=== PATIENT | female | born 1950 | race Caucasian/White ===

== ENCOUNTER 2024-10-18 15:35 | Inpatient (IN) | payer MEDICARE, OTHER ==
[~2024-10-18] VITALS: Ht 152.4 cm; Wt 36.3 kg
[2024-10-18 16:08] VITALS: BP 162/81; TEMP 97.9
[2024-10-18 16:50] VITALS: BP 162/81; TEMP 97.9
[2024-10-19] MEDS ORDERED: AMLO-212 PO (14:48)
[2024-10-19] MEDS ORDERED: ALBU2.5V38 IH (14:48)
[2024-10-19] MEDS ORDERED: ACET325T53 PO (14:48)
[2024-10-19] MEDS ORDERED: CHOL200013 PO (14:48)
[2024-10-19] MEDS ORDERED: ASPI81TA31 PO (14:48)
[2024-10-19] MEDS ORDERED: BISA-79 PO (14:48)
[2024-10-19] MEDS ORDERED: ZOLP5TAB8 PO (15:29)
[2024-10-19] MEDS ORDERED: PROC-11 PO (15:29)
[2024-10-19] MEDS ORDERED: LOPE2TAB25 PO (15:29)
[2024-10-19] MEDS ORDERED: FLUT1BLS6 IH (15:29)
[2024-10-19] MEDS ORDERED: RIBO400T PO (15:29)
[2024-10-19] MEDS ORDERED: ZINC113P3 TP (15:29)
[2024-10-19] MEDS ORDERED: HONE44PA TP (15:29)
[2024-10-19] MEDS ORDERED: SIME80TA15 PO (15:29)
[2024-10-19] MEDS ORDERED: ENOX40DI SUBCUT (15:29)
[2024-10-19] MEDS ORDERED: OXYC-128 PO (15:29)
[2024-10-19] MEDS ORDERED: PANT40TA2 PO (15:29)
[2024-10-19] MEDS ORDERED: SUMA100T16 PO (15:29)
[2024-10-19] MEDS ORDERED: MAGN30OR PO (15:29)
[2024-10-19] MEDS ORDERED: ESTR-3 PO (15:29)
[2024-10-19] MEDS ORDERED: DIAZ5TAB4 PO (15:29)
[2024-10-19] MEDS ORDERED: LEVO75TA7 PO (15:29)
[2024-10-19] MEDS ORDERED: MAGN400O6 PO (15:29)
[2024-10-19] MEDS ORDERED: ONDA4VIA52 IV (15:29)
[2024-10-19] MEDS ORDERED: PRED5SOL PO (15:29)
[2024-10-19] MEDS ORDERED: METO25TA6 PO (15:29)
[2024-10-19] MEDS ORDERED: DOCU-141 PO (15:29)
[2024-10-19] MEDS ORDERED: PRED-170 (15:29)
[2024-10-19] MEDS ORDERED: FENT1PAT9 TD (15:29)
[2024-10-19] MEDS ORDERED: SUMA100T PO (16:21)
[2024-10-19] MEDS ORDERED: PETR113P TP (16:23)
[2024-10-19] MEDS ORDERED: FENT1PAT9 TP (16:28)
[2024-10-19 17:11] VITALS: BP 145/70; TEMP 98; O2SAT 97
[2024-10-19] MEDS ORDERED: OXYCODONE/APAP 5-325 MG TABLET PO PRN (17:45)
[2024-10-19] MEDS ORDERED: DIAZEPAM 5 MG TABLET PO PRN (17:45)
[2024-10-19] MEDS ORDERED: MAGNESIUM HYDROXIDE 30 ML LIQUID UDC PO PRN (17:45)
[2024-10-19] MEDS ORDERED: BISACODYL 5 MG TABLET.DR PO PRN (17:45)
[2024-10-19] MEDS ORDERED: ACETAMINOPHEN 325 MG TABLET-SA PATIENTS-PAIN ONLY PO PRN (17:45)
[2024-10-19] MEDS ORDERED: ONDANSETRON 4 MG/2 ML VIAL IV PRN (17:45)
[2024-10-19] MEDS ORDERED: NALOXONE HCL 0.4 MG/ML AMPUL IV PRN (17:45)
[2024-10-19 19:36] LABS: *BILIRUBIN,URIN NEGATIVE (NEGATIVE); *CLARITY,URINE CLEAR (CLEAR); *COLOR,URINE YELLOW (YELLOW); *KETONES,URINE NEGATIVE (NEGATIVE); *PROTEIN,URINE NEGATIVE (NEGATIVE); *UROBILINOGEN,URINE 0.2 E.U./dl (NORMAL); LEUKOCYTE ESTERASE ,URINE TRACE (NEGATIVE); NITRITE, URINE NEGATIVE (NEGATIVE); UGLUCOSE TRACE (NEGATIVE)
[2024-10-19 19:38] LABS: *BLOOD, URINE TRACE (NEGATIVE)
[2024-10-19 20:00] LABS: BACTERIA,URINE FEW /HPF (NONE SEEN); RBC,URINE 0-3 /HPF (0-3); SQUAMOUS EPITHELIAL CELL,UR MODERATE /HPF (NONE SEEN)
[2024-10-19] MEDS ORDERED: MAG HYDROX/AL HYDROX/SIMETH 30 ML LIQUID UDC PO PRN (20:15)
[2024-10-19 20:48] VITALS: BP 140/75; TEMP 98.2; O2SAT 96
[2024-10-19] MEDS ORDERED: HYDROMORPHONE HCL 2 MG TABLET PO PRN (21:45)
[2024-10-20 06:30] VITALS: BP 141/62; TEMP 97.4; O2SAT 98
[2024-10-20 07:55] VITALS: TEMP 98.2
[2024-10-20] MEDS: PANTOPRAZOLE SODIUM 40 MG TABLET.DR PO SCH (08:42)
[2024-10-20] MEDS: SIMETHICONE 80 MG TAB.CHEW PO SCH (08:42)
[2024-10-20] MEDS: AMLODIPINE 5 MG TABLET PO SCH (08:43)
[2024-10-20] MEDS: ASPIRIN 81 MG TAB.CHEW PO SCH (08:43)
[2024-10-20] MEDS: LEVOTHYROXINE SODIUM 75 MCG TABLET PO SCH (08:43)
[2024-10-20] MEDS: METOPROLOL TARTRATE 25 MG TABLET PO SCH (08:43)
[2024-10-20] MEDS: CHOLECALCIFEROL 1,000 UNIT TABLET PO SCH (08:43)
[2024-10-20] MEDS: ENOXAPARIN SODIUM 40 MG/0.4 ML DISP.SYRIN SQ SCH (08:44)
[2024-10-20 08:45] LABS: BASOPHILS % (AUTO) 0.4 % (0.0-2.0); EOSINOPHILS # (AUTO) 0.1 K/uL (0.0-0.7); EOSINOPHILS % (AUTO) 1.2 % (0.0-7.0); HEMOGLOBIN 11.7 g/dL (10.9-14.3); LYMPHOCYTES % (AUTO) 10.5 % (20.5-51.5); MEAN CORPUSCULAR HEMOGLOBIN 32.3 uug (24.7-32.8); MEAN CORPUSCULAR HGB CONC 34 g/dL (32.3-35.6); MEAN CORPUSCULAR VOLUME 94.2 fL (75.5-95.3); MONOCYTES # (AUTO) 0.6 K/uL (0.1-1.30); MONOCYTES % (AUTO) 6.3 % (0.0-11.0); NEUTROPHILS % (AUTO) 81.6 % (38.5-71.5); PLATELET COUNT (AUTO) 380 K/uL (179-408); RED BLOOD CELL COUNT(AUTO) 3.62 MIL/uL (3.63-4.92); RED CELL DISTRIBUTION WIDTH 13.9 % (12.3-17.7); WHITE BLOOD COUNT (AUTO) 9.7 K/uL (3.8-11.8)
[2024-10-20 08:58] LABS: CALCIUM 9.4 mg/dL (8.5-10.1); CARBON DIOXIDE 32 mmol/L (21-32); CHLORIDE 102 mmol/L (98-107); CREATININE 0.9 mg/dL (0.6-1.3); GLUCOSE 116 mg/dL (74-106); PHOSPHOROUS 2.6 mg/dL (2.5-4.9); POTASSIUM 3.7 mmol/L (3.5-5.1); SODIUM SERUM 139 mmol/L (136-145); UREA NITROGEN, BLOOD 23 mg/dL (7-18)
[2024-10-20 09:00] LABS: DIFFERENTIAL COMMENT 1
[2024-10-20] MEDS ORDERED: [UNRECOGNIZED DRUG - OTHER] PO SCH (09:00)
[2024-10-20] MEDS ORDERED: predniSONE 5 MG/5 ML LIQ UDC PO SCH (09:00)
[2024-10-20] MEDS ORDERED: Medication Not On Formulary EA (Riboflavin 400 MG) PO SCH (09:00)
[2024-10-20] MEDS: PROCHLORPERAZINE MALEATE 5 MG TABLET PO SCH (10:10)
[2024-10-20] MEDS: ONDANSETRON ODT 4 MG TAB.RAPDIS SL PRN (10:17)
[2024-10-20] MEDS: predniSONE 5 MG TABLET PO SCH (10:17)
[2024-10-20] MEDS: RIBOFLAVIN 400 MG PO SCH (11:21)
[2024-10-20] MEDS: PREMPRO PO SCH (11:21)
[2024-10-20] MEDS: MEDIHONEY= THERAHONEY 1.5 OZ TUBE TOP SCH (12:03)
[2024-10-20] MEDS ORDERED: ONDANSETRON 4 MG/2 ML VIAL IM ONE (13:00)
[2024-10-20] MEDS: ONDANSETRON 4 MG/2 ML VIAL IM ONE (13:30)
[2024-10-20 16:15] VITALS: TEMP 97.4; O2SAT 96
[2024-10-20] MEDS: ENSURE ENLIVE (VAN) 240 ML LIQUID PO SCH (16:15)
[2024-10-20] MEDS: DOCUSATE SODIUM 100 MG CAPSULE PO PRN (16:18)
[2024-10-20 19:53] VITALS: BP 121/66; TEMP 99.9; O2SAT 97
[2024-10-20] MEDS: ACETAMINOPHEN 325 MG TABLET PO PRN (20:09)
[2024-10-21 02:35] VITALS: O2SAT 96
[2024-10-21 05:40] VITALS: BP 150/77; TEMP 98.3; O2SAT 98
[2024-10-21 07:41] LABS: BASOPHILS % (AUTO) 0.8 % (0.0-2.0); EOSINOPHILS % (AUTO) 0.9 % (0.0-7.0); HEMATOCRIT 29.9 % (31.2-41.9); HEMOGLOBIN 10.3 g/dL (10.9-14.3); LYMPHOCYTES # (AUTO) 1.2 K/uL (0.8-4.8); LYMPHOCYTES % (AUTO) 23.4 % (20.5-51.5); MEAN CORPUSCULAR HEMOGLOBIN 32.1 uug (24.7-32.8); MEAN CORPUSCULAR HGB CONC 34 g/dL (32.3-35.6); MEAN CORPUSCULAR VOLUME 93.2 fL (75.5-95.3); MONOCYTES # (AUTO) 0.9 K/uL (0.1-1.30); MONOCYTES % (AUTO) 18.7 % (0.0-11.0); NEUTROPHILS # (AUTO) 2.8 K/uL (1.8-8.9); NEUTROPHILS % (AUTO) 56.2 % (38.5-71.5); PLATELET COUNT (AUTO) 298 K/uL (179-408); RED BLOOD CELL COUNT(AUTO) 3.21 MIL/uL (3.63-4.92); RED CELL DISTRIBUTION WIDTH 13.6 % (12.3-17.7)
[2024-10-21 07:52] LABS: DIFFERENTIAL COMMENT 1
[2024-10-21 07:54] LABS: CALCIUM 8.8 mg/dL (8.5-10.1); CARBON DIOXIDE 33 mmol/L (21-32); CHLORIDE 100 mmol/L (98-107); GLUCOSE 91 mg/dL (74-106); POTASSIUM 3.8 mmol/L (3.5-5.1); SODIUM SERUM 137 mmol/L (136-145); UREA NITROGEN, BLOOD 30 mg/dL (7-18)
[2024-10-21 08:00] VITALS: BP 155/80; TEMP 98.5; O2SAT 100
[2024-10-21] MEDS: FENTANYL 100MCG/HR PATCH TD SCH (08:26)
[2024-10-21 12:19] LABS: LYMPHOCYTES % (MANUAL) 23 % (20-40); MONOCYTES % (MANUAL) 19 % (2-10); NEUTROPHILS % (MANUAL) 56 % (42-75)
[2024-10-21 12:20] LABS: EOSINOPHILS % (MANUAL) 2 % (0-8); PLATELET ESTIMATE ADEQUATE
[2024-10-21] MEDS: SUMATRIPTAN SUCCINATE 50 MG TABLET PO PRN (14:30)
[2024-10-21] MEDS: HYDROMORPHONE HCL 2 MG TABLET PO PRN (16:00)
[2024-10-21 16:02] VITALS: BP 135/73; TEMP 98; O2SAT 96
[2024-10-21 16:25] VITALS: O2SAT 96
[2024-10-21] MEDS: IV NS 1000 ML 1,000 ML IV ONE (16:58)
[2024-10-21 20:56] VITALS: BP 113/65; TEMP 98; O2SAT 98
[2024-10-22 06:19] VITALS: BP 112/67; TEMP 98.2; O2SAT 98
[2024-10-22 08:00] VITALS: BP 147/64; TEMP 97.5; O2SAT 98
[2024-10-22] MEDS: TRELEGY ELIPTA IH SCH (09:00)
[2024-10-22 14:20] VITALS: O2SAT 98
[2024-10-22 15:48] VITALS: BP 145/69; TEMP 97.9; O2SAT 99
[2024-10-22 21:08] VITALS: BP 131/65; TEMP 97.9; O2SAT 97
[2024-10-22 21:09] VITALS: BP 131/65; TEMP 97.9; O2SAT 97
[2024-10-23] VITALS (7 sets, daily range): BP systolic 116–152; BP diastolic 49–66; TEMP 97.6–98; O2SAT 95–99
[2024-10-23 07:28] LABS: BASOPHILS % (AUTO) 0.6 % (0.0-2.0); EOSINOPHILS # (AUTO) 0.1 K/uL (0.0-0.7); EOSINOPHILS % (AUTO) 0.8 % (0.0-7.0); HEMATOCRIT 25.2 % (31.2-41.9); HEMOGLOBIN 8.7 g/dL (10.9-14.3); LYMPHOCYTES # (AUTO) 1.5 K/uL (0.8-4.8); LYMPHOCYTES % (AUTO) 23.1 % (20.5-51.5); MEAN CORPUSCULAR HEMOGLOBIN 32.1 uug (24.7-32.8); MEAN CORPUSCULAR HGB CONC 34 g/dL (32.3-35.6); MEAN CORPUSCULAR VOLUME 93.4 fL (75.5-95.3); MONOCYTES # (AUTO) 0.8 K/uL (0.1-1.30); MONOCYTES % (AUTO) 12.1 % (0.0-11.0); NEUTROPHILS # (AUTO) 4.1 K/uL (1.8-8.9); NEUTROPHILS % (AUTO) 63.4 % (38.5-71.5); PLATELET COUNT (AUTO) 318 K/uL (179-408); RED CELL DISTRIBUTION WIDTH 13.1 % (12.3-17.7); WHITE BLOOD COUNT (AUTO) 6.5 K/uL (3.8-11.8)
[2024-10-23 07:41] LABS: CALCIUM 8.4 mg/dL (8.5-10.1); CARBON DIOXIDE 30 mmol/L (21-32); CHLORIDE 101 mmol/L (98-107); CREATININE 0.7 mg/dL (0.6-1.3); GLUCOSE 90 mg/dL (74-106); MAGNESIUM 1.5 mg/dL (1.8-2.4); PHOSPHOROUS 2.2 mg/dL (2.5-4.9); SODIUM SERUM 136 mmol/L (136-145); UREA NITROGEN, BLOOD 21 mg/dL (7-18)
[2024-10-23 07:42] LABS: DIFFERENTIAL COMMENT 1
[2024-10-23] MEDS: MAGNESIUM OXIDE 400 MG TABLET PO ONE (09:13)
[2024-10-23 13:20] LABS: *OCCULT BLOOD STOOL NEGATIVE (NEGATIVE)
[2024-10-23] MEDS: HYDROMORPHONE HCL 2 MG TABLET PO PRN (15:21)
[2024-10-23] MEDS: NEUTRA PHOS PACKET PO ONE (16:55)
[2024-10-23] MEDS: ALBUTEROL SULFATE 2.5 MG/3 ML NEBU IH PRN (17:15)
[2024-10-24 06:35] VITALS: BP 120/52; TEMP 97.3; O2SAT 97
[2024-10-24 07:53] VITALS: TEMP 97.6
[2024-10-24] MEDS: FENTANYL 100MCG/HR PATCH TD SCH (08:46)
[2024-10-24 14:57] VITALS: O2SAT 97
[2024-10-24 16:00] VITALS: TEMP 98
[2024-10-24 19:33] VITALS: BP 111/53; TEMP 98; O2SAT 99
[2024-10-25 05:00] VITALS: BP 117/55; TEMP 98.2; O2SAT 99
[2024-10-25 05:11] VITALS: O2SAT 96
[2024-10-25 08:00] VITALS: BP 128/58; TEMP 97.8; O2SAT 100
[2024-10-25 16:00] VITALS: BP 106/46; TEMP 97.6; O2SAT 100
[2024-10-25 16:59] VITALS: O2SAT 96
[2024-10-25 21:20] VITALS: BP 117/53; TEMP 98.5; O2SAT 98
[2024-10-26 07:16] VITALS: BP 100/46; TEMP 97.9; O2SAT 100
[2024-10-26 07:35] LABS: BASOPHILS % (AUTO) 0.8 % (0.0-2.0); EOSINOPHILS # (AUTO) 0.1 K/uL (0.0-0.7); EOSINOPHILS % (AUTO) 1.7 % (0.0-7.0); HEMATOCRIT 23.4 % (31.2-41.9); HEMOGLOBIN 8.1 g/dL (10.9-14.3); LYMPHOCYTES # (AUTO) 1.6 K/uL (0.8-4.8); LYMPHOCYTES % (AUTO) 26.7 % (20.5-51.5); MEAN CORPUSCULAR HGB CONC 34 g/dL (32.3-35.6); MEAN CORPUSCULAR VOLUME 92.8 fL (75.5-95.3); MONOCYTES # (AUTO) 0.8 K/uL (0.1-1.30); MONOCYTES % (AUTO) 12.6 % (0.0-11.0); NEUTROPHILS # (AUTO) 3.5 K/uL (1.8-8.9); NEUTROPHILS % (AUTO) 58.2 % (38.5-71.5); PLATELET COUNT (AUTO) 362 K/uL (179-408); RED BLOOD CELL COUNT(AUTO) 2.52 MIL/uL (3.63-4.92); WHITE BLOOD COUNT (AUTO) 6.1 K/uL (3.8-11.8)
[2024-10-26 07:45] LABS: DIFFERENTIAL COMMENT 1
[2024-10-26 07:49] VITALS: BP 134/68; TEMP 97.4
[2024-10-26 08:04] LABS: THYROID STIMULATING HORMONE 24.825 mIU/mL (0.358-3.740)
[2024-10-26 08:11] LABS: IRON, SERUM 58 ug/dL (50-175)
[2024-10-26 08:15] LABS: ALANINE AMINOTRANSFERASE 29 U/L (14-59); ALKALINE PHOSPHATASE 90 U/L (50-136); ASPARTATE AMINOTRANSFERASE 20 U/L (15-37); BILIRUBIN,TOTAL 0.5 mg/dL (0.2-1.0); CALCIUM 8.7 mg/dL (8.5-10.1); CARBON DIOXIDE 33 mmol/L (21-32); CHLORIDE 101 mmol/L (98-107); CREATININE 0.7 mg/dL (0.6-1.3); GLUCOSE 86 mg/dL (74-106); MAGNESIUM 1.7 mg/dL (1.8-2.4); PHOSPHOROUS 2.5 mg/dL (2.5-4.9); POTASSIUM 3.8 mmol/L (3.5-5.1); SODIUM SERUM 137 mmol/L (136-145); TOTAL PROTEIN, SERUM 5.3 g/dL (6.4-8.2); UREA NITROGEN, BLOOD 17 mg/dL (7-18)
[2024-10-26] MEDS: AMLODIPINE 5 MG TABLET PO SCH (08:52)
[2024-10-26] MEDS: ASPIRIN EC 81 MG TABLET.DR PO SCH (08:52)
[2024-10-26] MEDS: DOCUSATE SODIUM 100 MG CAPSULE PO SCH (08:53)
[2024-10-26] MEDS: MAGNESIUM OXIDE 400 MG TABLET PO ONE (12:31)
[2024-10-26] MEDS: HYDROMORPHONE HCL 2 MG TABLET PO PRN (15:31)
[2024-10-26 15:48] VITALS: BP 129/64; TEMP 97.3
[2024-10-26 16:40] VITALS: O2SAT 97
[2024-10-26 21:47] VITALS: BP 118/49; TEMP 98; O2SAT 99
[2024-10-26 22:01] VITALS: O2SAT 98
[2024-10-27] MEDS: LEVOTHYROXINE SODIUM 100 MCG TABLET PO SCH (06:26)
[2024-10-27 07:16] VITALS: BP 164/76; TEMP 98.1; O2SAT 99
[2024-10-27 08:00] VITALS: BP 125/53; TEMP 97.6; O2SAT 99
[2024-10-27] MEDS: PROTEIN SUPPLEMENT (PROSTAT) 30 ML LIQUID PO SCH (08:58)
[2024-10-27 10:00] VITALS: O2SAT 98
[2024-10-27 16:00] VITALS: BP 127/52; TEMP 98.6; O2SAT 100
[2024-10-27 19:19] VITALS: BP 136/57; TEMP 98.4; O2SAT 100
[2024-10-28 05:40] VITALS: BP 169/91; TEMP 98.3; O2SAT 100
[2024-10-28 07:56] VITALS: BP 132/56; TEMP 98; O2SAT 100
[2024-10-28 15:25] VITALS: BP 123/61; TEMP 98; O2SAT 100
[2024-10-28 16:08] VITALS: O2SAT 99
[2024-10-28 19:32] VITALS: BP 130/65; TEMP 98.5; O2SAT 98
[2024-10-29 05:26] VITALS: BP 155/54; TEMP 98.4; O2SAT 99
[2024-10-29 08:00] VITALS: BP 161/67; TEMP 97.7; O2SAT 100
[2024-10-29 15:45] VITALS: O2SAT 98
[2024-10-29 16:15] VITALS: BP 113/61; TEMP 98.7; O2SAT 98
[2024-10-29 16:55] VITALS: BP 113/61; TEMP 98.7; O2SAT 95
[2024-10-29 21:28] VITALS: BP 122/50; TEMP 98.1; O2SAT 97
[2024-10-30 06:45] VITALS: BP 125/58; TEMP 98.2; O2SAT 97
[2024-10-30 08:00] VITALS: BP 145/66; TEMP 97.8; O2SAT 96
[2024-10-30 08:30] VITALS: BP 145/66; TEMP 97.8; O2SAT 96
[2024-10-30 08:54] VITALS: BP 145/66
[2024-10-30] MEDS: [UNRECOGNIZED DRUG - OTHER] TOP SCH (09:12)
[2024-10-30] MEDS: FENTANYL 100 MCG/HR TOP SCH (09:12)
== END 2024-10-30 14:25 | disposition home health service (06) | DRG 463 ==
PROVIDERS: ADMIT Physical Medicine & Rehabilitation Pain Medicine; ATTEND Physical Medicine & Rehabilitation Pain Medicine
PROC: 0JB70ZZ Excision of Back Subcutaneous Tissue and Fascia, Open Approach (ICD-10-PCS; principal; 2024-10-25)
DX: Z47.1 Aftercare following joint replacement surgery (principal); E43 Unspecified severe protein-calorie malnutrition; L89.153 Pressure ulcer of sacral region, stage 3; R64 Cachexia; Z68.1 Body mass index [BMI] 19.9 or less, adult; Z96.642 Presence of left artificial hip joint; I10 Essential (primary) hypertension; Z88.0 Allergy status to penicillin; M06.9 Rheumatoid arthritis, unspecified; Z91.81 History of falling; E03.9 Hypothyroidism, unspecified; E83.39 Other disorders of phosphorus metabolism; E83.42 Hypomagnesemia; R62.7 Adult failure to thrive; G89.29 Other chronic pain; R29.6 Repeated falls; D64.9 Anemia, unspecified
CPT/HCPCS: 36415; 73501; 83550; 83735; 84100; 84443; 85025; 85610; 94664; 94760; 97535-GO-CO; A6209; J1650; J7040; J7510; J7512; J8499; Q0162

== ENCOUNTER 2024-11-10 09:51 | Inpatient (IN) | payer MEDICARE, OTHER ==
[~2024-11-10] VITALS: Ht 160 cm; Wt 42.2 kg
[~2024-11-10 09:51] MED LIST: ACET325T53 PO; ALBU2.5V38 IH; AMLO-212 PO; ASPI81TA31 PO; BISA-79 PO; CHOL200013 PO; DIAZ5TAB4 PO; DOCU-141 PO; ENOX40DI SUBCUT; ESTR-3 PO; FENT1PAT9 TP; FLUT1BLS6 IH; HONE44PA TP; LEVO75TA7 PO; LOPE2TAB25 PO; MAGN30OR PO; MAGN400O6 PO; METO25TA6 PO; ONDA4VIA52 IV; OXYC-128 PO; PANT40TA2 PO; PETR113P TP; PRED5SOL PO; PROC-11 PO; RIBO400T PO; SIME80TA15 PO; SUMA100T PO; ZOLP5TAB8 PO
[2024-11-10 10:33] VITALS: BP 157/80; TEMP 97.7
[2024-11-10 10:55] VITALS: BP 157/80; TEMP 97.7
[2024-11-10 18:08] VITALS: BP 118/56; TEMP 98.1; O2SAT 93
[2024-11-10 18:11] VITALS: TEMP 98.1
[2024-11-10] MEDS ORDERED: ONDANSETRON 4 MG/2 ML VIAL IV PRN (18:30)
[2024-11-10] MEDS ORDERED: ALBUTEROL SULFATE 2.5 MG/3 ML NEBU IH PRN (18:30)
[2024-11-10] MEDS ORDERED: NALOXONE HCL 0.4 MG/ML AMPUL IV PRN (18:30)
[2024-11-10] MEDS ORDERED: DIAZEPAM 5 MG TABLET PO PRN (18:30)
[2024-11-10] MEDS ORDERED: LOPERAMIDE HCL 2 MG CAPSULE PO PRN (18:30)
[2024-11-10] MEDS ORDERED: SUMATRIPTAN SUCCINATE 50 MG TABLET PO PRN (18:30)
[2024-11-10] MEDS ORDERED: MAG HYDROX/AL HYDROX/SIMETH 30 ML LIQUID UDC PO PRN (18:30)
[2024-11-10] MEDS ORDERED: ACETAMINOPHEN 325 MG TABLET PO PRN (18:30)
[2024-11-10] MEDS ORDERED: ALBUTEROL SULFATE 2.5 MG/3 ML NEBU NEB PRN (18:45)
[2024-11-10 21:19] VITALS: BP 121/54; TEMP 98.5; O2SAT 93
[2024-11-10] MEDS ORDERED: REMEDY ESSENTIAL ZINC PASTE 113 GM TOP PRN (23:30)
[2024-11-11] MEDS: OXYCODONE/APAP 5-325 MG TABLET PO PRN (01:01)
[2024-11-11] MEDS: PANTOPRAZOLE SODIUM 40 MG TABLET.DR PO SCH (06:19)
[2024-11-11] MEDS: LEVOTHYROXINE SODIUM 75 MCG TABLET PO SCH (06:19)
[2024-11-11 06:48] VITALS: BP 142/60; TEMP 98.3; O2SAT 94
[2024-11-11 07:35] VITALS: BP 155/67; TEMP 98.2; O2SAT 95
[2024-11-11 08:09] LABS: BASOPHILS % (AUTO) 0.5 % (0.0-2.0); EOSINOPHILS # (AUTO) 0.2 K/uL (0.0-0.7); EOSINOPHILS % (AUTO) 2.5 % (0.0-7.0); HEMATOCRIT 26.6 % (31.2-41.9); HEMOGLOBIN 9.2 g/dL (10.9-14.3); LYMPHOCYTES # (AUTO) 1.3 K/uL (0.8-4.8); LYMPHOCYTES % (AUTO) 17.8 % (20.5-51.5); MEAN CORPUSCULAR HEMOGLOBIN 32.9 uug (24.7-32.8); MEAN CORPUSCULAR HGB CONC 34 g/dL (32.3-35.6); MEAN CORPUSCULAR VOLUME 95.6 fL (75.5-95.3); MONOCYTES # (AUTO) 0.6 K/uL (0.1-1.30); MONOCYTES % (AUTO) 8.8 % (0.0-11.0); NEUTROPHILS # (AUTO) 5.1 K/uL (1.8-8.9); NEUTROPHILS % (AUTO) 70.4 % (38.5-71.5); PLATELET COUNT (AUTO) 245 K/uL (179-408); RED BLOOD CELL COUNT(AUTO) 2.79 MIL/uL (3.63-4.92); RED CELL DISTRIBUTION WIDTH 14.3 % (12.3-17.7); WHITE BLOOD COUNT (AUTO) 7.2 K/uL (3.8-11.8)
[2024-11-11] MEDS: ENOXAPARIN SODIUM 40 MG/0.4 ML DISP.SYRIN SQ SCH (08:15)
[2024-11-11] MEDS: AMLODIPINE 5 MG TABLET PO SCH (08:15)
[2024-11-11] MEDS: CHOLECALCIFEROL 1,000 UNIT TABLET PO SCH (08:15)
[2024-11-11] MEDS: predniSONE 5 MG TABLET PO SCH (08:16)
[2024-11-11] MEDS: ASPIRIN 81 MG TAB.CHEW PO SCH (08:16)
[2024-11-11] MEDS: SIMETHICONE 80 MG TAB.CHEW PO SCH (08:16)
[2024-11-11] MEDS: PROCHLORPERAZINE MALEATE 5 MG TABLET PO SCH (08:17)
[2024-11-11 08:29] LABS: DIFFERENTIAL COMMENT 1
[2024-11-11 08:48] LABS: ALANINE AMINOTRANSFERASE 16 U/L (14-59); ALBUMIN 2.1 g/dL (3.4-5.0); ALKALINE PHOSPHATASE 76 U/L (50-136); ASPARTATE AMINOTRANSFERASE 19 U/L (15-37); BILIRUBIN,DIRECT 0.1 mg/dL (0.0-0.2); BILIRUBIN,TOTAL 0.4 mg/dL (0.2-1.0); CALCIUM 8.5 mg/dL (8.5-10.1); CARBON DIOXIDE 27 mmol/L (21-32); CHLORIDE 103 mmol/L (98-107); CREATININE 0.7 mg/dL (0.6-1.3); GLUCOSE 87 mg/dL (74-106); MAGNESIUM 1.9 mg/dL (1.8-2.4); PHOSPHOROUS 1.6 mg/dL (2.5-4.9); POTASSIUM 3.7 mmol/L (3.5-5.1); SODIUM SERUM 138 mmol/L (136-145); TOTAL PROTEIN, SERUM 5.7 g/dL (6.4-8.2); UREA NITROGEN, BLOOD 17 mg/dL (7-18)
[2024-11-11] MEDS ORDERED: predniSONE 5 MG/5 ML LIQ UDC PO SCH (09:00)
[2024-11-11] MEDS ORDERED: METOPROLOL TARTRATE 25 MG TABLET PO SCH (09:00)
[2024-11-11] MEDS ORDERED: Medication Not On Formulary EA (Riboflavin 400 MG) PO SCH (09:00)
[2024-11-11] MEDS ORDERED: PRED-170 PO (09:17)
[2024-11-11] MEDS ORDERED: TRAM50TA2 PO (09:19)
[2024-11-11] MEDS ORDERED: GABA-532 PO (09:19)
[2024-11-11] MEDS ORDERED: ASPI-1420 PO (09:20)
[2024-11-11] MEDS ORDERED: VITA-85A PO (09:23)
[2024-11-11] MEDS ORDERED: ASCO500C18 PO (09:26)
[2024-11-11 11:18] LABS: THYROID STIMULATING HORMONE 5.883 mIU/mL (0.358-3.740)
[2024-11-11] MEDS: MEDIHONEY= THERAHONEY 1.5 OZ TUBE TOP SCH (12:21)
[2024-11-11] MEDS: PREMPRO PO SCH (12:22)
[2024-11-11 15:12] VITALS: BP 112/56; TEMP 98.8; O2SAT 95
[2024-11-11] MEDS: NEUTRA PHOS PACKET PO ONE (16:15)
[2024-11-11] MEDS: ARGININE/GLUTAMINE/CALCIUM BMB 1 EACH POWD.PACK PO SCH (17:06)
[2024-11-11 20:13] VITALS: BP 116/50; TEMP 98.7; O2SAT 96
[2024-11-11] MEDS: ZOLPIDEM 5 MG TABLET PO PRN (22:20)
[2024-11-12 05:10] VITALS: BP 135/55; TEMP 98.4; O2SAT 94
[2024-11-12 08:00] VITALS: BP 143/66; TEMP 98.1; O2SAT 98
[2024-11-12] MEDS: FENTANYL 100MCG/HR PATCH TD SCH (09:21)
[2024-11-12 16:14] VITALS: BP 108/59; TEMP 98.7; O2SAT 96
[2024-11-12 20:56] VITALS: BP 131/65; TEMP 98; O2SAT 97
[2024-11-13 07:05] VITALS: BP 139/63; TEMP 97.6; O2SAT 97
[2024-11-13 08:36] VITALS: TEMP 97.6
[2024-11-13 16:00] VITALS: TEMP 98.4
[2024-11-13 20:21] VITALS: BP 126/65; TEMP 98.2; O2SAT 95
[2024-11-14 06:36] VITALS: BP 128/66; TEMP 98.2; O2SAT 95
[2024-11-14 08:00] VITALS: TEMP 98
[2024-11-14 16:12] VITALS: TEMP 98.4
[2024-11-14 20:27] VITALS: BP 111/53; TEMP 98.2; O2SAT 99
[2024-11-15 06:45] VITALS: BP 136/65; TEMP 98.6; O2SAT 98
[2024-11-15 08:00] VITALS: BP 134/63; TEMP 97.8; O2SAT 96
[2024-11-15 12:54] LABS: BASOPHILS % (AUTO) 0.2 % (0.0-2.0); EOSINOPHILS % (AUTO) 0.1 % (0.0-7.0); HEMATOCRIT 24.9 % (31.2-41.9); HEMOGLOBIN 8.5 g/dL (10.9-14.3); LYMPHOCYTES # (AUTO) 0.3 K/uL (0.8-4.8); LYMPHOCYTES % (AUTO) 4.3 % (20.5-51.5); MEAN CORPUSCULAR HEMOGLOBIN 32.9 uug (24.7-32.8); MEAN CORPUSCULAR HGB CONC 34 g/dL (32.3-35.6); MEAN CORPUSCULAR VOLUME 95.9 fL (75.5-95.3); MONOCYTES # (AUTO) 0.3 K/uL (0.1-1.30); MONOCYTES % (AUTO) 3.7 % (0.0-11.0); NEUTROPHILS # (AUTO) 7.3 K/uL (1.8-8.9); NEUTROPHILS % (AUTO) 91.7 % (38.5-71.5); PLATELET COUNT (AUTO) 263 K/uL (179-408); RED CELL DISTRIBUTION WIDTH 14.5 % (12.3-17.7)
[2024-11-15 13:09] LABS: DIFFERENTIAL COMMENT 1
[2024-11-15 13:33] LABS: ALANINE AMINOTRANSFERASE 17 U/L (14-59); ALBUMIN 2.4 g/dL (3.4-5.0); ALKALINE PHOSPHATASE 99 U/L (50-136); ASPARTATE AMINOTRANSFERASE 20 U/L (15-37); BILIRUBIN,TOTAL 0.4 mg/dL (0.2-1.0); CALCIUM 8.7 mg/dL (8.5-10.1); CARBON DIOXIDE 27 mmol/L (21-32); CHLORIDE 97 mmol/L (98-107); GLUCOSE 194 mg/dL (74-106); POTASSIUM 3.7 mmol/L (3.5-5.1); SODIUM SERUM 132 mmol/L (136-145); TOTAL PROTEIN, SERUM 6.2 g/dL (6.4-8.2); UREA NITROGEN, BLOOD 25 mg/dL (7-18)
[2024-11-15] MEDS: FERROUS SULFATE 325 MG TABEC PO ONE (14:23)
[2024-11-15 16:00] VITALS: BP 120/56; TEMP 97.4; O2SAT 98
[2024-11-15 22:34] VITALS: BP 113/48; TEMP 98.1; O2SAT 96
[2024-11-16 07:06] VITALS: BP 124/66; TEMP 98; O2SAT 95
[2024-11-16 08:00] VITALS: BP 124/57; TEMP 97.2; O2SAT 98
[2024-11-16] MEDS: FERROUS SULFATE 325 MG TABEC PO SCH (09:07)
[2024-11-16 16:00] VITALS: BP 119/54; TEMP 97.2; O2SAT 98
[2024-11-16 22:48] VITALS: BP 126/61; TEMP 97.9; O2SAT 97
[2024-11-17 07:16] VITALS: BP 133/61; TEMP 97.3; O2SAT 94
[2024-11-17 08:00] VITALS: BP 143/68; TEMP 97.5; O2SAT 96
[2024-11-17] MEDS: MAGNESIUM HYDROXIDE 30 ML LIQUID UDC PO PRN (13:34)
[2024-11-17 15:30] VITALS: BP 128/57; TEMP 98; O2SAT 98
[2024-11-17 21:32] VITALS: BP 120/56; TEMP 98.1; O2SAT 97
[2024-11-18 07:38] VITALS: BP 131/60; TEMP 98; O2SAT 96
[2024-11-18 08:11] VITALS: BP 136/67; TEMP 97.7; O2SAT 96
[2024-11-18 16:13] VITALS: TEMP 97.4
[2024-11-18 20:07] VITALS: BP 113/54; TEMP 98.3; O2SAT 95
[2024-11-19 04:00] VITALS: BP 144/66; TEMP 98.2; O2SAT 97
[2024-11-19 07:44] VITALS: TEMP 98.4
[2024-11-19 08:00] VITALS: BP 143/62; TEMP 98.2; O2SAT 96
[2024-11-19 16:40] VITALS: BP 128/59; TEMP 98.3; O2SAT 96
[2024-11-20 06:00] VITALS: BP 132/60; TEMP 98.2; O2SAT 93
[2024-11-20 08:13] VITALS: BP 142/57; TEMP 98.1; O2SAT 96
[2024-11-20] MEDS: DOCUSATE SODIUM 100 MG CAPSULE PO PRN (13:04)
[2024-11-20 16:02] VITALS: BP 116/53; TEMP 98.5; O2SAT 97
[2024-11-20 21:15] VITALS: BP 122/50; TEMP 98.2; O2SAT 95
[2024-11-21 07:35] VITALS: BP 127/53; TEMP 98.3; O2SAT 94
[2024-11-21 15:23] VITALS: BP 123/50; TEMP 98.1; O2SAT 98
[2024-11-21 20:07] VITALS: BP 131/52; TEMP 97.5; O2SAT 97
[2024-11-22 06:18] VITALS: BP 136/66; TEMP 97.6; O2SAT 95
[2024-11-22 08:00] VITALS: BP 146/57; TEMP 97.8; O2SAT 97
[2024-11-22] MEDS: BISACODYL 5 MG TABLET.DR PO PRN (13:16)
[2024-11-22] MEDS: SODIUM HYPOCHLORITE 0.125% (QUARTER STRENGTH) 473 ML BOTTLE TP SCH (13:49)
[2024-11-22 15:22] VITALS: BP 115/48; TEMP 98.5; O2SAT 96
[2024-11-22 22:47] VITALS: BP 130/52; TEMP 98.7; O2SAT 96
[2024-11-23 06:59] VITALS: BP 128/59; TEMP 98.9; O2SAT 94
[2024-11-23 08:00] VITALS: BP 119/54; TEMP 98.6; O2SAT 95
[2024-11-23 16:03] VITALS: BP 127/58; TEMP 97.7; O2SAT 98
[2024-11-23 20:28] VITALS: BP 124/56; TEMP 98.7; O2SAT 95
[2024-11-24 07:00] VITALS: BP 117/53; TEMP 97.8; O2SAT 91
[2024-11-24 08:28] VITALS: BP 142/67; TEMP 98.9; O2SAT 93
[2024-11-24 16:10] VITALS: BP 90/42; TEMP 98.5; O2SAT 97
[2024-11-24 21:32] VITALS: BP 133/60; TEMP 98.7; O2SAT 95
[2024-11-25 06:56] VITALS: BP 121/54; TEMP 98.6; O2SAT 94
[2024-11-25 07:41] VITALS: BP 127/56; TEMP 97.2; O2SAT 100
[2024-11-25 16:00] VITALS: BP 133/59; TEMP 98.6; O2SAT 97
[2024-11-25 19:53] VITALS: BP 132/61; TEMP 97.9; O2SAT 96
[2024-11-26 06:44] VITALS: BP 153/71; TEMP 97.2; O2SAT 96
[2024-11-26 08:12] VITALS: BP 150/62; TEMP 97.4; O2SAT 97
[2024-11-26 08:48] VITALS: BP 150/62
[2024-11-26] MEDS ORDERED: ENSURE ENLIVE (VAN) 240 ML LIQUID PO SCH (17:00)
== END 2024-11-26 14:45 | disposition home health service (06) | DRG 463 ==
PROVIDERS: ADMIT Physical Medicine & Rehabilitation; ATTEND Physical Medicine & Rehabilitation Pain Medicine
PROC: 0JB70ZZ Excision of Back Subcutaneous Tissue and Fascia, Open Approach (ICD-10-PCS; principal; 2024-11-15)
PROC: 0KBP0ZZ Excision of Left Hip Muscle, Open Approach (ICD-10-PCS; 2024-11-22)
PROC: 0KBN0ZZ Excision of Right Hip Muscle, Open Approach (ICD-10-PCS; 2024-11-22)
DX: Z47.1 Aftercare following joint replacement surgery (principal); E43 Unspecified severe protein-calorie malnutrition; L89.154 Pressure ulcer of sacral region, stage 4; G91.2 (Idiopathic) normal pressure hydrocephalus; Z68.1 Body mass index [BMI] 19.9 or less, adult; Z91.81 History of falling; E03.9 Hypothyroidism, unspecified; G89.4 Chronic pain syndrome; I10 Essential (primary) hypertension; L89.150 Pressure ulcer of sacral region, unstageable; M06.9 Rheumatoid arthritis, unspecified; W01.0XXD Fall on same level from slipping, tripping and stumbling without subsequent striking against object, subsequent encounter; R29.6 Repeated falls; Z96.641 Presence of right artificial hip joint; M81.0 Age-related osteoporosis without current pathological fracture; Z79.52 Long term (current) use of systemic steroids; D64.9 Anemia, unspecified; G43.909 Migraine, unspecified, not intractable, without status migrainosus; L89.612 Pressure ulcer of right heel, stage 2; L89.622 Pressure ulcer of left heel, stage 2; M25.78 Osteophyte, vertebrae; Z88.0 Allergy status to penicillin; Z88.8 Allergy status to other drugs, medicaments and biological substances; G89.29 Other chronic pain; R53.81 Other malaise; R62.7 Adult failure to thrive
CPT/HCPCS: 36415; 73502; 83735; 84100; 84443; 85025; 97535-GO-CO; A4663; A6209; J1650; J7510; J7512; J8499